=== PATIENT | female | born 1985 | race Caucasian/White ===

== ENCOUNTER 2022-03-31 00:59 | Emergency (ER) | payer MEDICARE ==
[~2022-03-31 00:59] MED LIST: COLACE 100MG C100 MG PO
== END 2022-03-31 03:29 | disposition home or self-care (01) ==
LOC: ER1 00:59
DX: J02.9 Acute pharyngitis, unspecified (principal); Z20.822 Contact with and (suspected) exposure to COVID-19; F17.210 Nicotine dependence, cigarettes, uncomplicated; Z88.1 Allergy status to other antibiotic agents
CPT/HCPCS: 99283; U0003

== ENCOUNTER 2022-04-19 01:40 | Emergency (ER) | payer OTHER | END 2022-04-19 02:43 | disposition home or self-care (01) | LOC: ER1 01:40 | DX: R07.0 Pain in throat (principal); Z20.822 Contact with and (suspected) exposure to COVID-19; F17.210 Nicotine dependence, cigarettes, uncomplicated | CPT/HCPCS: 99283; U0003 ==

== ENCOUNTER 2022-05-23 15:03 | Emergency (ER) | payer OTHER | END 2022-05-23 15:19 | disposition left against medical advice (07) | LOC: ER1 15:03 | DX: Z53.21 Procedure and treatment not carried out due to patient leaving prior to being seen by health care provider (principal) ==

== ENCOUNTER 2022-07-01 05:30 | Emergency (ER) | payer OTHER ==
[2022-07-01 06:48] LABS: HEMOGLOBIN 12.8 gm/dl (12.3-15.3); RED BLOOD COUNT 4.16 M/UL (4.00-5.10); WHITE BLOOD COUNT 9.1 K/UL (4.5-11.0)
[2022-07-01 07:05] LABS: BUN/CREATININE RATIO 20 (0-10)
== END 2022-07-01 10:40 | disposition home or self-care (01) ==
LOC: ER1 05:30
PROVIDERS: Physician Assistant
DX: R07.89 Other chest pain (principal); F17.210 Nicotine dependence, cigarettes, uncomplicated; Z88.1 Allergy status to other antibiotic agents
CPT/HCPCS: 71045; 80053; 82550; 82553; 84484; 84703; 85025; 93005; 99285